=== PATIENT | female | born 1950 | race Caucasian/White ===

== ENCOUNTER 2019-01-15 13:17 | Emergency (ER) | payer MEDICARE, OTHER ==
[2019-01-15] MEDS ORDERED: Sodium Chloride 0.9% 1,000 ML IV ONE (13:55)
[2019-01-15] MEDS ORDERED: Sodium Chloride 0.9% 10 ML Syringe FLUSH PRN (13:57)
[2019-01-15] MEDS ORDERED: Metoclopramide 10 MG/2 ML SDV IVPUSH ONE (13:57)
--- NOTE | 2019-01-15 14:14 | EDM.PDOC ---
ED HPI GENERAL MEDICAL PROBLEM - General Chief Complaint: General Stated Complaint: WEAK,,BLOOD IN STOOL Time Seen by Provider: 01/15/19 14:06 Source of Information: Reports: Patient, Family () History Limitations: Reports: No Limitations - History of Present Illness INITIAL COMMENTS - FREE TEXT/NARRATIVE: Patient is a 68-year-old female who presents to the emergency department via private vehicle for complaint of abdominal pain and blood in stool. Patient was being treated at [facility] in [place] on Wednesday, and underwent endoscopy and colonoscopy. Patient has a history of brain and breast cancer. On Wednesday evening following a meal of chicken noodle soup, patient vomited and has intermittent vomiting since. Patient had one bowel movement yesterday that was normal. This morning, patient had a bowel movement that consisted of a lot of aki red blood. Patient has been nauseous with abdominal cramps since. Patient lives in the vicinity so they decided to travel home and present to [facility]. Patient denies chest pain, shortness of breath, fever or blood in vomitus. Onset: Gradual Duration: Day(s): Location: Reports: Abdomen Quality: Reports: Ache Severity: Mild Improves with: Reports: None Worsens with: Reports: Eating Associated Symptoms: Reports: Nausea/Vomiting, Weakness. Denies: Fever/Chills - Related Data Allergies Allergy/AdvReac Type Severity Reaction Status Date / Time No Known Allergies Allergy Verified 01/15/19 13:41 Home Meds: Home Meds Calcium Carbonate/Vitamin D3 [Calcium 600 + Vit D 400] 2 tab PO BID 03/19/13 [ History] Cholecalciferol (Vitamin D3) [Vitamin D3] 2,000 unit PO BRK 03/19/13 [History] Letrozole 2.5 mg PO WDIN 03/19/13 [History] Multivitamin with Minerals [Multiple Vitamin] 1 tab PO DAILY@1200 03/19/13 [ History] [place]-3 Fatty Acids [[place]-3] 1,000 mg PO DAILY 03/19/13 [History] Omeprazole 20 mg PO 03/19/13 [History] Phenytoin Sodium Extended [Dilantin] 100 mg PO 03/19/13 [History] Pyridoxine HCl (Vitamin B6) [Vitamin B-6] 100 mg PO BIDM 03/19/13 [History] Capecitabine [Xeloda] 1,000 mg PO BIDPC 03/20/13 [History] Lapatinib Ditosylate [Tykerb] 1,250 mg PO ACDIN 03/20/13 [History] Potassium Chloride [Klor-Con M20] 20 meq PO BID 03/20/13 [History] Acetaminophen/HYDROcodone [[place] 325-5 MG] 1 - 2 tab PO Q4H PRN #30 tablet 04/06 [Rx] Levothyroxine [Synthroid] 50 mcg PO ACBREAKFAST 01/15/19 [History] Magnesium Oxide 250 mg PO BID 01/15/19 [History] Melatonin 9 mg PO BEDTIME 01/15/19 [History] Naproxen Sodium [Aleve] 440 mg PO DAILY 01/15/19 [History] Phenytoin [Dilantin] 50 mg PO WITHLUNCH 01/15/19 [History] Social & Family History - Living Situation & Occupation Living situation: Reports: Occupation: Disabled ED ROS GENERAL - Review of Systems Review Of Systems: Comprehensive ROS is negative, except as noted in HPI. Constitutional: Reports: Weakness HEENT: Reports: No Symptoms Respiratory: Reports: No Symptoms Cardiovascular: Reports: No Symptoms Endocrine: Reports: No Symptoms GI/Abdominal: Reports: Abdominal Pain, Bloody Stool, Decreased Appetite, Nausea , Vomiting : Reports: No Symptoms Musculoskeletal: Reports: No Symptoms Skin: Reports: No Symptoms Neurological: Reports: No Symptoms Psychiatric: Reports: No Symptoms Hematologic/Lymphatic: Reports: No Symptoms Immunologic: Reports: No Symptoms ED EXAM, GENERAL - Physical Exam Exam: See Below Exam Limited By: No Limitations General Appearance: Alert, WD/WN, No Apparent Distress, Lethargic Eye Exam: Bilateral Eye: Normal Inspection Nose: Normal Inspection, Normal Mucosa, No Blood Throat/Mouth: Normal Inspection, Normal Oropharynx, No Airway Compromise Head: Atraumatic, Normocephalic Neck: Normal Inspection, Supple Respiratory/Chest: No Respiratory Distress, Lungs Clear, Normal Breath Sounds, No Accessory Muscle Use, Chest Non-Tender Cardiovascular: Regular Rate, Rhythm, No Murmur GI/Abdominal: Soft, No Organomegaly, No Distention, No Abnormal Bruit, Tender ( Mildly tender right lower quadrant), Abnormal Bowel Sounds (hypo). No: Distended, Guarding, Rigid, Rebound Back Exam: Normal Inspection. No: CVA Tenderness (L), CVA Tenderness (R) Extremities: Normal Inspection, No Pedal Edema Neurological: Alert, Oriented, Normal Cognition Psychiatric: Normal Affect, Normal Mood Skin Exam: Warm, Dry, Intact, Normal Color, No Rash Course - Vital Signs Last Recorded V/S: Last Vital Signs Temp 96.3 F 01/15/19 13:22 Pulse 96 01/15/19 13:22 Resp 23 H 01/15/19 13:22 BP 118/74 01/15/19 13:22 Pulse Ox 93 L 01/15/19 14:10 - Orders/Labs/Meds Orders: Active Orders 24 hr Category Date Time Status Peripheral IV Care [RC] . DIRECTED Care 01/15/19 13:57 Active Sodium Chloride 0.9% @ 125 MLS/HR (1000ml) Med 01/15/19 16:15 Ordered Sodium Chloride 0.9% [Normal Saline] 1,000 ml IV ASDIRECTED Sodium Chloride 0.9% [Saline Flush] Med 01/15/19 13:57 Active 10 ml FLUSH Q8HR PRN Peripheral IV Insertion Adult [OM.PC] Routine Oth 01/15/19 13:57 Ordered Medication Orders Sodium Chloride (Normal Saline) 1,000 mls @ 125 mls/hr IV ASDIRECTED YVROSE Sodium Chloride (Saline Flush) 10 ml FLUSH Q8HR PRN PRN Reason: keep vein open Labs: Laboratory Tests 01/15/19 01/15/19 Range/Units 14:00 14:00 WBC 9.51 (5.00-10.00) 10^3/uL RBC 4.21 (3.80-5.50) 10^6/uL Hgb 15.1 (12.0-16.0) g/dL Hct 44.0 (37.0-47.0) % MCV 104.5 H (82.0-92.0) fL MCH 35.9 H (27.0-31.0) pg MCHC 34.3 (32.0-36.0) g/dL RDW 20.0 H (11.5-14.5) % Plt Count 253 (150-400) 10^3/uL MPV 10.8 H (7.4-10.4) fL Add Manual Diff Yes Neutrophils % (Manual) 36 L (50-70) % Band Neutrophils % 44 H (4-12) % Lymphocytes % (Manual) 13 L (20-40) % Monocytes % (Manual) 7 (2-8) % Absolute Neutrophils 7.6080 Lymphocytes # (Manual) 1.2363 Monocytes # (Manual) 0.6657 Sodium 139 (136-145) mmol/L Potassium 4.5 (3.3-5.3) mmol/L Chloride 99 (98-115) mmol/L Carbon Dioxide 24.0 (21.0-32.0) mmol/L Anion Gap 20.5 H (5-15) mmol/L BUN 40 H (6-25) mg/dL Creatinine 1.83 H (0.51-1.17) mg/dL Est Cr Clr Drug Dosing 27.22 mL/min Estimated GFR (MDRD) 27 mL/min Glucose 163 H (75 - 99) mg/dL Calcium 10.0 (8.7-10.3) mg/dL Total Bilirubin 1.5 H (0.2-1.0) mg/dL AST 60 H (15-37) U/L ALT 47 (12-78) U/L Alkaline Phosphatase 56 (46-116) IU/L Total Protein 7.3 (6.4-8.2) g/dL Albumin 3.37 (3.00-4.80) g/dL Meds: Medications Generic Name Dose Route Start Last Admin Trade Name Freq PRN Reason Stop Dose Admin Sodium Chloride 1,000 mls @ 125 mls/hr 01/15/19 16:15 Normal Saline IV ASDIRECTED YVROSE Sodium Chloride 10 ml 01/15/19 13:57 Saline Flush FLUSH Q8HR PRN keep vein open Discontinued Medications Generic Name Dose Route Start Last Admin Trade Name Freq PRN Reason Stop Dose Admin Sodium Chloride 1,000 mls @ 999 mls/hr 01/15/19 13:55 01/15/19 14:05 Normal Saline IV 01/15/19 14:55 999 mls/hr .BOLUS ONE Administration Metoclopramide HCl 10 mg 01/15/19 13:57 01/15/19 14:07 Reglan IVPUSH 01/15/19 13:58 10 mg ONETIME ONE Administration - Radiology Interpretation Free Text/Narrative:: CT abdomen and pelvis without contrast shows extensive pneumatosis and suspicion for bowel ischemia. - Re-Assessments/Exams Free Text/Narrative Re-Assessment/Exam: 01/15/19 16:10 Patient afebrile, vital signs stable, nausea and pain control. Discussed case with physician school psychologist assistant Leoncio Victoria for [facility]. surgeon at [facility]. They will accept transfer of care via EMS. Departure - Departure Time of Disposition: 16:12 Disposition: DC/Tfer to Acute Hospital 02 Condition: Fair Clinical Impression: Pneumatosis of intestines Abdominal pain Qualifiers: Abdominal location: generalized Qualified Code(s): R10.84 - Generalized abdominal pain - Discharge Information Referrals: Holden Fong MD [Primary Care Provider] - Forms: ED Department Discharge - My Orders Last 24 Hours: My Active Orders 01/15/19 13:57 Peripheral IV Care [RC] . DIRECTED Sodium Chloride 0.9% [Saline Flush] 10 ml FLUSH Q8HR PRN Peripheral IV Insertion Adult [OM.PC] Routine 01/15/19 16:15 Sodium Chloride 0.9% @ 125 MLS/HR (1000ml) Sodium Chloride 0.9% [Normal Saline] 1,000 ml IV ASDIRECTED - Assessment/Plan Last 24 Hours: My Active Orders 01/15/19 13:57 Peripheral IV Care [RC] . DIRECTED Sodium Chloride 0.9% [Saline Flush] 10 ml FLUSH Q8HR PRN Peripheral IV Insertion Adult [OM.PC] Routine 01/15/19 16:15 Sodium Chloride 0.9% @ 125 MLS/HR (1000ml) Sodium Chloride 0.9% [Normal Saline] 1,000 ml IV ASDIRECTED Assessment:: Abdominal pain Plan: Transfer to [facility]
[2019-01-15 14:33] LABS: ANION GAP 20.5 mmol/L (5-15)
--- NOTE | 2019-01-15 15:32 | CT ---
[id number] CT/CT Abdomen Pelvis WO IV EXAM: CT Abdomen Pelvis WO IV CLINICAL DATA: ABDOMINAL PAIN. COMPARISON STUDY: June 06, 2018. FINDINGS: There is pneumatosis throughout a large segment of the small bowel most prominent in the left upper quadrant. Involve loops of bowel demonstrate dilation and distention with edema in the interposed mesentery. Additionally, there is portal venous gas extending into the bilateral pattern lobes left greater than right. Stomach is distended with air-fluid level and hyperdense material layering dependently in the lumen. Hyperdense material could represent blood products. No evidence of pneumoperitoneum or drainable fluid collection in the abdomen. Bowel containing ventral lower abdominal wall hernia in the midline. Numerous small fat-containing hernias more superior in the ventral abdominal wall. Extensive parenchymal opacification in the bilateral lung bases. Findings are nonspecific. Correlate for signs of infection as they could represent pneumonia. IMPRESSION: Extensive pneumatosis intestinalis throughout a large portion of the small bowel. Bowel is abnormally dilated and distended with edema interposed within the mesentery of the abnormal loops. Additionally there is portal venous gas as well. Findings could represent bowel ischemia. Surgical consultation recommended. Additionally there are possible blood products in the stomach, which is dilated and fluid-filled. Bibasal nonspecific parenchymal opacities. Correlate for signs of pneumonia. Results relayed to Brenton Reyes at time of dictation. Marv Jaimes MD 01/15/19 [id number] Thank you for allowing us to participate in the care of your patient.
[2019-01-15] MEDS ORDERED: Sodium Chloride 0.9% 1,000 ML ONE (16:14)
[2019-01-15] MEDS ORDERED: Sodium Chloride 0.9% 1,000 ML IV SCH (16:15)
== END 2019-01-15 16:35 ==
LOC: KA.ED 13:17
DX: K63.89 Other specified diseases of intestine (principal)
CPT/HCPCS: 74176; 80053; 85025; 96361; 96374; 99284; 99285-25; J2765; J7030

== ENCOUNTER 2020-02-18 22:27 | Emergency (ER) | payer MEDICARE, OTHER ==
[2020-02-18] MEDS ORDERED: Sodium Chloride 0.9% 10 ML Syringe FLUSH PRN (22:49)
[2020-02-18] MEDS ORDERED: Sodium Chloride 0.9% 1,000 ML IV ONE (22:50)
--- NOTE | 2020-02-18 22:51 | EDM.PDOC ---
ED HPI GENERAL MEDICAL PROBLEM - General Chief Complaint: General Stated Complaint: shortness of breath Time Seen by Provider: 02/18/20 22:50 Source of Information: Reports: Patient History Limitations: Reports: No Limitations - History of Present Illness INITIAL COMMENTS - FREE TEXT/NARRATIVE: Susan, 69-year-old female, presents by ambulance this evening after experiencing 3 days of diarrhea. Having 35 episodes per day since onset. Imodium and other oral medications have made no improvement in her status. She has been somewhat anxious and possibly hyperventilating as she is extremely dry in her mouth with attempting oral intake near her normal status. She comments that all of her lab work/tests returned good from oncology months ago, November. Not needing to return for 6 months. She denies any nausea at this time, denies any fever chills, no chest pain or muscle cramping. Some abdominal cramping at the onset with rapid respirations at times questionably anxiety induced. No Covid exposures or risk factors that she is aware of. Onset Date: 02/15/20 Duration: Day(s):, Constant, Getting Worse Location: Reports: Abdomen Quality: Reports: Pressure Severity: Moderate Improves with: Reports: None Worsens with: Reports: None Context: Reports: Other Associated Symptoms: Reports: No Other Symptoms - Related Data Allergies Allergy/AdvReac Type Severity Reaction Status Date / Time No Known Allergies Allergy Verified 02/18/20 22:32 Home Meds: Home Meds Calcium Carbonate/Vitamin D3 [Calcium 600 + Vit D 400] 1 tab PO BID 03/19/13 [History] Cholecalciferol (Vitamin D3) [Vitamin D3] 2,000 unit PO BRK 03/19/13 [History] Letrozole 2.5 mg PO WDIN 03/19/13 [History] Multivitamin with Minerals [Multiple Vitamin] 1 tab PO DAILY@1200 03/19/13 [History] [place]-3 Fatty Acids [[place]-3] 1,000 mg PO DAILY 03/19/13 [History] Omeprazole 40 mg PO MAGDALENA 03/19/13 [History] Phenytoin Sodium Extended [Dilantin] 100 mg PO 03/19/13 [History] Pyridoxine HCl (Vitamin B6) [Vitamin B-6] 200 mg PO DAILY 03/19/13 [History] Lapatinib Ditosylate [Tykerb] 1,250 mg PO ACDIN 03/20/13 [History] Potassium Chloride [Klor-Con M20] 20 meq PO BID 03/20/13 [History] Magnesium Oxide 250 mg PO BID 01/15/19 [History] Naproxen Sodium [Aleve] 440 mg PO TID 01/15/19 [History] Phenytoin [Dilantin] 50 mg PO WITHLUNCH 01/15/19 [History] Melatonin 10 mg PO BEDTIME 02/18/20 [History] Past Medical History HEENT History: Reports: None Gastrointestinal History: Reports: Colon Polyp, Diverticulosis, GI Bleed Genitourinary History: Reports: None 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: Musculoskeletal History: Reports: Fracture Psychiatric History: Reports: Panic Attack Endocrine/Metabolic History: Reports: Hypothyroidism Immunologic History: Reports: Immunosuppression, Other (See Below) Other Immunologic History: oral chemo meds 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 Female Surgical History: Reports: Mastectomy Endocrine Surgical History: Reports: Thyroidectomy, Other (See Below) Other Endocrine Surgeries/Procedures: partial thyroidectomy Neurological Surgical History: Reports: None Musculoskeletal Surgical History: Reports: Hip Replacement Oncologic Surgical History: Reports: Mastectomy, Other (See Below) Other Oncologic Surgeries/Procedures: left mastectomy, brain surgery due to mets. multiple ports placed and removed Social & Family History - Family History Family Medical History: No Pertinent Family History - Living Situation & Occupation Living situation: Reports: Occupation: Disabled ED ROS GENERAL - Review of Systems Review Of Systems: Comprehensive ROS is negative, except as noted in HPI. ED EXAM, GENERAL - Physical Exam Exam: See Below Free Text/Narrative:: Alert, oriented, mild pallor is noted. No icterus no injection with PERRLA. EOM intact. HEENT is negative discharge or deformity. Tacky oral membranes, pink in color, with no erythema. Neck is soft and supple with no lymphadenopathy, no JVD noted. No rigidity. Thorax is mildly diminished with no wheezes nor crackles noted. Cardiac is S1-S2, I do not appreciate any murmur. Abdomen is soft bowel sounds are active, no mass palpable, pressure to palpation. Extremities are cool distally with no cyanosis, no edema noted. She states that is normal for her. Course - Vital Signs Last Recorded V/S: Last Vital Signs Temp 96.9 F 02/19/20 00:39 Pulse 69 02/19/20 00:39 Resp 20 02/19/20 00:39 BP 138/67 02/19/20 00:39 Pulse Ox 99 02/19/20 00:39 - Orders/Labs/Meds Orders: Active Orders 24 hr Category Date Time Status Peripheral IV Care [RC] . DIRECTED Care 02/18/20 22:50 Active Abdomen 1V Flat [CR] Stat Exams 02/18/20 22:49 Ordered Abdomen 1V Upright [CR] Stat Exams 02/18/20 22:49 Ordered Chest 2V [CR] Stat Exams 02/18/20 22:48 Ordered Sodium Chloride 0.9% [Saline Flush] Med 02/18/20 22:49 Active 10 ml FLUSH Q8HR PRN Peripheral IV Insertion Adult [OM.PC] Routine Oth 02/18/20 22:49 Ordered Medication Orders Sodium Chloride (Saline Flush) 10 ml FLUSH Q8HR PRN PRN Reason: keep vein open Labs: Laboratory Tests 02/18/20 02/18/20 Range/Units 22:55 22:55 WBC 5.09 (5.00-10.00) 10^3/uL RBC 3.98 (3.80-5.50) 10^6/uL Hgb 12.9 D (12.0-16.0) g/dL Hct 39.6 (37.0-47.0) % MCV 99.5 H D (82.0-92.0) fL MCH 32.4 H (27.0-31.0) pg MCHC 32.6 (32.0-36.0) g/dL RDW 23.8 H (11.5-14.5) % Plt Count 280 (150-400) 10^3/uL MPV 10.0 (7.4-10.4) fL Immature Gran % (Auto) 0.4 (0.0-5.0) % Neut % (Auto) 67.6 (50.0-70.0) % Lymph % (Auto) 20.8 (20.0-40.0) % [place] % (Auto) 9.8 H (2.0-8.0) % Eos % (Auto) 0.4 L (1.0-3.0) % Baso % (Auto) 1.0 (0.0-1.0) % Neut # (Auto) 3.44 (2.50-7.00) 10^3/uL Lymph # (Auto) 1.06 (1.00-4.00) 10^3/uL [place] # (Auto) 0.50 (0.10-0.80) 10^3/uL Eos # (Auto) 0.02 L (0.10-0.30) 10^3/uL Baso # (Auto) 0.05 (0.00-0.10) 10^3/uL Immature Gran # (Auto) 0.02 (0.00-0.50) 10^3/uL Sodium 140 (136-145) mmol/L Potassium 4.7 (3.5-5.1) mmol/L Chloride 105 (98-107) mmol/L Carbon Dioxide 23.4 (21.0-32.0) mmol/L Anion Gap 16.3 H (5-15) mmol/L BUN 34 H (7-18) mg/dL Creatinine 1.21 H (0.51-1.17) mg/dL Est Cr Clr Drug Dosing 41.82 mL/min Estimated GFR (MDRD) 44 mL/min Glucose 132 (70-140) mg/dL Calcium 8.4 L (8.7-10.3) mg/dL Total Bilirubin 0.5 (0.2-1.0) mg/dL AST 19 (15-37) U/L ALT 19 (14-63) U/L Alkaline Phosphatase 72 (46-116) U/L Total Protein 6.3 L (6.4-8.2) g/dL Albumin 3.01 L (3.40-5.00) g/dL Amylase 31 (25-125) U/L Lipase 37 L (73-393) U/L Meds: Medications Generic Name Dose Route Start Last Admin Trade Name Freq PRN Reason Stop Dose Admin Sodium Chloride 10 ml 02/18/20 22:49 Saline Flush FLUSH Q8HR PRN keep vein open Discontinued Medications Generic Name Dose Route Start Last Admin Trade Name Freq PRN Reason Stop Dose Admin Sodium Chloride 1,000 mls @ 999 mls/hr 02/18/20 22:50 02/18/20 23:30 Normal Saline IV 02/18/20 23:50 999 mls/hr .BOLUS ONE Administration Lorazepam 0.5 mg 02/19/20 00:34 02/19/20 00:38 Ativan PO 02/19/20 00:35 Not Given ONETIME ONE - Radiology Interpretation Free Text/Narrative:: Significant dilation of loops of bowel with no evidence of any consolidation on chest x-ray, mild lingular haziness is noted with normal-appearing costophrenic angles. Over read is pending - Re-Assessments/Exams Free Text/Narrative Re-Assessment/Exam: 02/18/20 23:43 Despite her stating there are no other issues besides her diarrhea, she was unable to stand for the upright abdomen. When returned from the department I returned to the room to discuss this with herself and her stating she declined/denied any contributing factors other than her diarrhea and dry mouth. Her harshly replies to me that I had not asked him anything, to which I replied he was not present during the examination. He then states that in the past week she has become more unstable and difficulty walking using her walker and has required him to be available with the wheelchair secondary of her weakness and difficulty in her gait and instability. I question if they discussed that and she stated that they no longer need 3- month checkups because everything looks good, despite difficulty with ambulation no discussion has been held with oncology on that with testing last completed nearly 3 months ago at this time. All cares are through [facility] with no records available for review at the time of this visit. Free Text/Narrative Re-Assessment/Exam: 02/19/20 00:39 After seeing bone lesion to the proximal right humerus on chest x-ray I contacted the [facility] radiology department who confirmed CT chest abdomen pelvis as well as MRI of the brain was performed on 07 December with no concerning findings. I discussed in detail with Susan and her the recommendation for bone scan and my concern that she has had mild progression in her weakness and capabilities that warrant follow-up with her oncology department knowing her history. The decline catheterization for urine sample. They feel comfortable in returning home this evening and continuing their cares as after further discussion the weakness is something they have been dealing with for the past month. No significant laboratory findings warrant admission nor transfer to [facility] at this time. Importance of repeating studies including recommended bone scan secondary of the right proximal humerus lesion noted on chest x-ray this evening. Departure - Departure Time of Disposition: 00:38 Disposition: Home, Self-Care 01 Condition: Fair Clinical Impression: Diarrhea, Bone lesion, Anxiety, Pneumatosis of intestines - Discharge Information *PRESCRIPTION DRUG MONITORING PROGRAM REVIEWED*: Not Applicable *COPY OF PRESCRIPTION DRUG MONITORING REPORT IN PATIENT KATHIE: Not Applicable Instructions: Managing Anxiety, Adult, Diarrhea, Adult, [id number] Referrals: Ebony Patricia MD [Primary Care Provider] - Holden Fong MD [Ordering Only Provider] - Forms: ED Department Discharge Additional Instructions: Home and rest tonight. Continue with your sips of water and medications and treatment as previously ordered. Contact Dr. Fong's office tomorrow to discuss the findings of the bone lesion that was noted on your chest x-ray this evening. Recommendation for a bone scan was made by radiology, and it would be beneficial to your course of care that this would be able to be done at the [facility] facility in [place] where the other testing has occurred. Make sure you mention to them the weakness that has slightly progressed with time as you are nearing [address] scan and MRI was completed. We will give you 0.5 mg lorazepam which is very similar to the diazepam or Valium that you have been given for your MRIs in the past. Take this once you get home to help reduce your anxiety and assist you to sleep tonight. The lab work shows no significant abnormality from your diarrhea, the fluid you were given tonight should bring your kidney function back in the normal range and be beneficial overall to your hydration status. Call or return to the emergency department or the clinic if any significant changes occur or if you are unable to get scheduled for testing or appointments with [facility] in [place]. Sepsis Event Note (ED) - Focused Exam Vital Signs: Vital Signs Temp Pulse Resp BP Pulse Ox 02/19/20 00:39 96.9 F 69 20 138/67 99 02/19/20 00:03 70 36 H 136/80 100 02/18/20 23:30 76 32 H 133/83 99 02/18/20 22:30 73 20 143/77 H 98 - Problem List & Annotations (1) Diarrhea SNOMED Code(s): 63148383 Code(s): R19.7 - DIARRHEA, UNSPECIFIED Status: Acute Priority: High Current Visit: Yes Qualifiers: Diarrhea type: functional diarrhea Qualified Code(s): K59.1 - Functional diarrhea (2) Abdominal cramping SNOMED Code(s): 022543000, 648637422 Code(s): R10.9 - UNSPECIFIED ABDOMINAL PAIN Status: Acute Priority: High Current Visit: Yes (3) Weakness SNOMED Code(s): 14745778 Code(s): R53.1 - WEAKNESS Status: Acute Priority: High Current Visit: Yes (4) Ileus SNOMED Code(s): 158938784 Code(s): K56.7 - ILEUS, UNSPECIFIED Status: Acute Current Visit: Yes (5) Bone lesion SNOMED Code(s): 00445673 Code(s): M89.9 - DISORDER OF BONE, UNSPECIFIED Status: Acute Current Visit: Yes (6) Anxiety SNOMED Code(s): 10465785 Code(s): F41.9 - ANXIETY DISORDER, UNSPECIFIED Status: Acute Current Visit: Yes - Problem List Review Problem List Initiated/Reviewed/Updated: Yes - My Orders Last 24 Hours: My Active Orders 02/18/20 22:48 Chest 2V [CR] Stat 02/18/20 22:49 Abdomen 1V Flat [CR] Stat Abdomen 1V Upright [CR] Stat Sodium Chloride 0.9% [Saline Flush] 10 ml FLUSH Q8HR PRN Peripheral IV Insertion Adult [OM.PC] Routine 02/18/20 22:50 Peripheral IV Care [RC] . DIRECTED - Assessment/Plan Last 24 Hours: My Active Orders 02/18/20 22:48 Chest 2V [CR] Stat 02/18/20 22:49 Abdomen 1V Flat [CR] Stat Abdomen 1V Upright [CR] Stat Sodium Chloride 0.9% [Saline Flush] 10 ml FLUSH Q8HR PRN Peripheral IV Insertion Adult [OM.PC] Routine 02/18/20 22:50 Peripheral IV Care [RC] . DIRECTED Plan: Home and rest tonight. Continue with your sips of water and medications and treatment as previously ordered. Contact Dr. Fong's office tomorrow to discuss the findings of the bone lesion that was noted on your chest x-ray this evening. Recommendation for a bone scan was made by radiology, and it would be beneficial to your course of care that this would be able to be done at the [facility] facility in [place] where the other testing has occurred. Make sure you mention to them the weakness that has slightly progressed with time as you are nearing [address] scan and MRI was completed. We will give you 0.5 mg lorazepam which is very similar to the diazepam or Valium that you have been given for your MRIs in the past. Take this once you get home to help reduce your anxiety and assist you to sleep tonight. The lab work shows no significant abnormality from your diarrhea, the fluid you were given tonight should bring your kidney function back in the normal range and be beneficial overall to your hydration status. Call or return to the emergency department or the clinic if any significant changes occur or if you are unable to get scheduled for testing or appointments with [facility] in [place].
[2020-02-18 23:22] LABS: ANION GAP 16.3 mmol/L (5-15)
[2020-02-19] MEDS ORDERED: LORazepam 0.5 MG Tab PO ONE (00:34)
[2020-02-19] MEDS ORDERED: Sodium Chloride 0.9% 1,000 ML ONE (01:51)
--- NOTE | 2020-02-19 08:01 | CR ---
[id number] RAD/RAD Chest PA And Lateral EXAM: RAD Chest PA And Lateral INDICATION: DIARRHEA, CRAMPS COMPARISON: CT from December 08, 2019. Radiograph from 2014. DISCUSSION: Cardiomediastinal silhouette is normal in size and contour. Bilateral symmetric lung hyperinflation. This correlates with emphysematous change on prior CT. No evidence of pneumonia. No pleural effusion or pneumothorax. Mineralization of the proximal humeral metaphysis is stable compared to 2014 and consistent with benign structures such as enchondroma. IMPRESSION: No acute findings. Other findings are described above. Marv Jaimes MD 02/19/20 0800 Thank you for allowing us to participate in the care of your patient.
--- NOTE | 2020-02-19 08:19 | CR ---
[id number] RAD/RAD Abdomen Flat Plate 1V EXAM: RAD Abdomen Flat Plate 1V INDICATION: DIARRHEA COMPARISON: CT from November 2019 DISCUSSION: Gas-filled loops of small bowel and colon throughout the abdomen/pelvis. Appearance is nonspecific but unobstructed in appearance. No radiographically evident pneumoperitoneum or pneumatosis. Stippled appearing mineralization projects over the right lower quadrant, likely is located within the bowel. Suture line projects over the pelvis, consistent with history of bowel resection. IMPRESSION: As above. Marv Jaimes MD 02/19/20 0818 Thank you for allowing us to participate in the care of your patient.
== END 2020-02-19 01:10 | disposition home or self-care (01) ==
LOC: KA.ED 22:27
DX: K63.89 Other specified diseases of intestine (principal); R19.7 Diarrhea, unspecified; F41.9 Anxiety disorder, unspecified; M89.9 Disorder of bone, unspecified; E03.9 Hypothyroidism, unspecified; Z79.899 Other long term (current) drug therapy
CPT/HCPCS: 71046; 74018; 80053; 82150; 83690; 85025; 99284; A9270-GY; J7030

== ENCOUNTER 2021-09-16 12:23 | Emergency (ER) | payer MEDICARE, OTHER ==
[2021-09-16] MEDS ORDERED: Sodium Chloride 0.9% 10 ML Syringe FLUSH PRN (12:33)
[2021-09-16 12:55] LABS: ANION GAP 12.7 mmol/L (5-15)
[2021-09-16] MEDS ORDERED: Sodium Chloride 0.9% 1,000 ML IV ONE (13:33)
== END 2021-09-16 15:30 ==
LOC: KA.ED 12:23
DX: R53.1 Weakness (principal); D72.828 Other elevated white blood cell count; Z88.8 Allergy status to other drugs, medicaments and biological substances
CPT/HCPCS: 36415; 70450; 71045; 80053; 81001; 82947; 83605; 84484; 85025; 85610; 85730; 96360; 99285; 99285-25; J7030

== ENCOUNTER 2022-01-26 16:51 | Emergency (ER) | payer MEDICARE, OTHER ==
[2022-01-26] MEDS ORDERED: Sodium Chloride 0.9% 10 ML Syringe FLUSH PRN (17:02)
[2022-01-26 17:32] LABS: ANION GAP 12.6 mmol/L (5-15); CHLORIDE,CL 98 mmol/L (98-107); SODIUM,NA 134 mmol/L (136-145)
[2022-01-26 17:34] LABS: ESTIMATED GFR 101 mL/min (>=60)
== END 2022-01-26 19:20 ==
LOC: KA.ED 16:51
DX: R40.4 Transient alteration of awareness (principal); I44.7 Left bundle-branch block, unspecified; Z88.8 Allergy status to other drugs, medicaments and biological substances; Z79.899 Other long term (current) drug therapy
CPT/HCPCS: 36415; 51702; 70450; 71045; 80053; 81001; 83605; 84484; 85025; 93010; 99285; 99285-25